=== PATIENT | male | born 1950 | race Caucasian/White ===

== ENCOUNTER → 2016-11-21 | Outpatient (CLI) | payer OTHER | LOC: FIMAGING 09:15 | PROVIDERS: ATTEND Internal Medicine Hematology & Oncology | DX: M89.9 Disorder of bone, unspecified (principal); C90.00 Multiple myeloma not having achieved remission; M41.84 Other forms of scoliosis, thoracic region; M84.48XA Pathological fracture, other site, initial encounter for fracture; M53.87 Other specified dorsopathies, lumbosacral region ==